=== PATIENT | male | born 1945 | race Caucasian/White ===

== ENCOUNTER 2023-12-26 14:36 | Day surgery (SDC) | payer MEDICARE ==
[2023-12-26] MEDS ORDERED: LIDOCAINE HCL 1% 50 MG/5 ML VL PF IJ ONE (14:37)
[2023-12-26] MEDS ORDERED: Depo-Medrol 40 MG/ML IM ONE (14:37)
[2023-12-26] MEDS ORDERED: Sodium Chloride 0.9(Preservative Free) 10 ML IJ ONE (14:37)
[2023-12-26] MEDS ORDERED: Lactated Ringers 1,000 ML IV ONE (17:17)
--- NOTE | 2023-12-26 20:43 | XRAY ---
Indication: Thoracic KIMBERLY. Intraoperative fluoroscopy provided for 29 seconds. 2 digital spot image submitted for interpretation demonstrates posterior needle tip projecting posterior presumed unknown mid thoracic segment. Small amount of contrast injected for needle tip placement. Correlate with intraoperative findings/report.
--- NOTE | 2023-12-27 10:12 | XRAY ---
29 seconds of fluoroscopy was used in surgery for a thoracic KIMBERLY.
== END 2023-12-26 17:18 | disposition home or self-care (01) ==
LOC: SDC-PAIN 14:36
PROVIDERS: ATTEND Psychiatry & Neurology Pain Medicine
DX: M54.14 Radiculopathy, thoracic region (principal); E11.9 Type 2 diabetes mellitus without complications
CPT/HCPCS: 62321; 72072; 77003; 82947; J1010; J2001; Q9966; J1030